=== PATIENT | female | born 2000 | race Two or more races ===

== ENCOUNTER 2025-02-03 17:53 | Emergency (ER) | payer OTHER ==
[~2025-02-03] VITALS: Ht 162.6 cm; Wt 68.0 kg
[2025-02-03] MEDS ORDERED: 0.9 % SODIUM CHLORIDE 1,000 ML IV ONE (18:30)
[2025-02-03] MEDS ORDERED: ONDANSETRON HCL 2 MG/ML VIAL IV ONE (18:30)
[2025-02-03] MEDS ORDERED: CIPROFLOXACIN IN 5 % DEXTROSE 400 MG/200 ML PIGGYBAG IV ONE (18:30)
[2025-02-03] MEDS ORDERED: FAMOtidine 10 MG/ML (4ML VIAL) IV ONE (18:30)
[2025-02-03 18:52] LABS: BASO % 0.4 % (0.1-1.2); EOS # 0.03 (0.04-0.54); EOS % 0.6 % (0.7-7.0); LYMPH # 1.10 (1.18-3.74); LYMPH % 21.6 % (19.3-53.1); MEAN PLATELET VOLUME 9.40 fl (9.4-12.4); MONO # 0.54 (0.24-0.82); MONO % 10.6 % (4.7-12.5); NEUT # 3.39 (1.56-6.13); NEUT % 66.6 % (34.0-71.1); RED CELL DISTRIBUTION WIDTH 14.0 % (11.6-14.4)
[2025-02-03 19:44] LABS: INR 1.02
[2025-02-03 19:51] LABS: ALT/SGPT 25 U/L (12-78); AST/SGOT 14 U/L (15-37); BILIRUBIN TOTAL 0.58 mg/dL (0.3-1.2); BUN CREA RATIO 12 (7.0-25.0); CREATININE SERUM 0.76 mg/dL (0.55-1.02); GFR 94.31; GLOBULINA 3.8 G/DL (2.4-3.5); GLUCOSE FASTING 89 mg/dL (65-100); OSMOLALITY SERUM 276 MOSM/KG (275-295)
[2025-02-03 19:53] LABS: HCG QUANTITATIVE < 1 mUI/mL (1-3)
[2025-02-03] MEDS ORDERED: PROBIOTIC1 EAC2 PO (20:51)
[2025-02-03] MEDS ORDERED: ZOFRAN8 MG PO (20:51)
[2025-02-03] MEDS ORDERED: METRONIDAZOLE500 MG PO (20:51)
[2025-02-03] MEDS ORDERED: PEPCID AC20 MG PO (20:51)
[2025-02-03] MEDS ORDERED: CIPRO500 MG PO (20:51)
== END 2025-02-03 21:50 | disposition home or self-care (01) ==
LOC: ER 18:56
PROVIDERS: General Practice
DX: A05.9 Bacterial foodborne intoxication, unspecified (principal); R11.2 Nausea with vomiting, unspecified